=== PATIENT | male | born 1955 | race Caucasian/White ===

== ENCOUNTER 2021-02-09 14:06 | Emergency (ER) | payer MEDICARE, BC ==
[~2021-02-09] VITALS: Ht 177.8 cm; Wt 90.7 kg
--- NOTE | 2021-02-09 14:19 | NUR ---
Md at bedside for evaluation
--- NOTE | 2021-02-09 14:20 | NUR ---
Pt. being transferred to radiology for head ct. No signs of distress, alert and oriented.
--- NOTE | 2021-02-09 14:46 | NUR ---
Patient discharged to home in stable condition. Written and verbal after care instructions given. Patient verbalizes understanding of instructions. Stressed follow up or return to ER for worsening s/s. Patient walks with a steady gait.
[2021-02-09 15:14] VITALS: BP 144/85
== END 2021-02-09 14:45 | disposition home or self-care (01) ==
LOC: ER 14:06
DX: S06.9X9A Unspecified intracranial injury with loss of consciousness of unspecified duration, initial encounter (principal); R40.2362 Coma scale, best motor response, obeys commands, at arrival to emergency department; R40.2142 Coma scale, eyes open, spontaneous, at arrival to emergency department; R40.2252 Coma scale, best verbal response, oriented, at arrival to emergency department; W22.8XXA Striking against or struck by other objects, initial encounter; Y92.89 Other specified places as the place of occurrence of the external cause; E78.00 Pure hypercholesterolemia, unspecified; M50.322 Other cervical disc degeneration at C5-C6 level; M48.02 Spinal stenosis, cervical region
CPT/HCPCS: 70450; 72125; A4663